=== PATIENT | female | born 1990 | race American Indian/Alaskan Native ===

== ENCOUNTER 2018-09-10 08:30 | Emergency (ER) | payer BC, MEDICAID, OTHER ==
[2018-09-10 08:42] VITALS: RESP 20; O2SAT 100
[2018-09-10] MEDS ORDERED: Midazolam 5 MG/5 ML VIAL IVP STA (09:03)
--- NOTE | 2018-09-10 09:05 | C.PDOC ---
History Of Present Illness PERSIST MID STERNAL CP SINCE 07/2018. INTERMIT MID STERNAL CP, PS "I HAD A CHEST CT AND IT WAS NORMAL", DX BRONCHITIS. PAIN INITIALLY WORSE W COUGH. still w OCC DRY COUGH BUT STILL W TIGHTNESS. DENIES SMOKING, ASTHMA, GI DISEASE. NO LEG SWELL, PAIN EXAM MOD DIST HEENT NEG LUNGS CTA B/L NO W/R/R NO RETRACTION SPEAKING FULL SENTENCES CV RRR SINUS TACH PSYCH ANXIOUS CRYING BUT CONSOLABLE; LABILE EXT NO EDEMA, SWELL, NONTEND REMAINDER NEG Time Seen by Provider: 09/10/18 08:54 Chief Complaint (Nursing): Chest Pain History Per: Patient History/Exam Limitations: no limitations Onset/Duration Of Symptoms: Days Current Symptoms Are (Timing): Still Present Severity: Moderate Past Medical History Reviewed: Historical Data, Nursing Documentation, Vital Signs Vital Signs: Last Vital Signs Temp 99.9 F H 09/10/18 08:42 Pulse 130 H 09/10/18 08:42 Resp 20 09/10/18 08:42 BP 128/81 09/10/18 08:42 Pulse Ox 100 09/10/18 08:42 - Medical History PMH: Bronchitis Surgical History: No Surg Hx Family History: States: No Known Family Hx - Social History Hx Alcohol Use: No Hx Substance Use: No - Immunization History Hx Tetanus Toxoid Vaccination: No Hx Influenza Vaccination: No Hx Pneumococcal Vaccination: No Review Of Systems Except As Marked, All Systems Reviewed And Found Negative. Constitutional: Negative for: Fever, Chills Cardiovascular: Positive for: Chest Pain Respiratory: Negative for: Shortness of Breath Gastrointestinal: Negative for: Nausea, Vomiting Physical Exam - Physical Exam Appears: Other (moderate distress) Skin: Normal Color, Warm, Dry Head: Atraumatic, Normacephalic Eye(s): bilateral: Normal Inspection Cardiovascular: Other (RRR Sinus Tachycardia) Respiratory: Normal Breath Sounds, No Rales, No Rhonchi, No Wheezing, Other (speaking in full sentences, no retractions) Extremity: Normal ROM, No Tenderness, No Swelling, Other (no edema) Neurological/Psych: Other (psych: anxious,crying, but consolable; labile) ED Course And Treatment - Laboratory Results Result Diagrams: 09/10/18 09:51 09/10/18 09:51 ECG: Interpreted By Me ECG Rhythm: Sinus Tachycardia Rate From EC O2 Sat by Pulse Oximetry: 100 (RA) Pulse Ox Interpretation: Normal - Radiology CXR: Interpreted by Me, Viewed By Me CXR Interpretation: Yes: No Acute Disease Progress - Re-Evaluation Re-evaluation Note: 09/10/18 10:58 PT NOW STATES IS ON ALBUTEROL MDI AND STEROID. CURRENTLY TAKING AMOXIL 500 MG SINCE 4 DAYS DUE TO DENTAL INFXN. LABS WNL. RX AUGMENTIN, TESSALON, CONTINUE NSAIDS ADVISED FU PMD Medical Decision Making Medical Decision Making: Plan: --Labs --ECG --CXR --Morphine IV --Versed IV Disposition Counseled Patient/Family Regarding: Studies Performed, Diagnosis, Need For Followup, Rx Given - Disposition Referrals: YOUR,PMD [Other] Disposition: HOME/ ROUTINE Disposition Time: 10:49 Condition: IMPROVED Prescriptions: Amoxicillin/Clavulanate [Augmentin 875 MG-125 MG] 1 tab PO BID #14 tab Benzonatate [Tessalon Perles] 200 mg PO TID PRN #15 sgl PRN Reason: Cough Instructions: Costochondritis (DC) Forms: [facility] (Syrian), Work Excuse - Clinical Impression Clinical Impression: Pleuritic pain, Anxiety reaction, Cough - Scribe Statement The provider has reviewed the documentation as recorded by the Tushar Mercado Provider Attestation: All medical record entries made by the Daytonibsarath were at my direction and personally dictated by me. I have reviewed the chart and agree that the record accurately reflects my personal performance of the history, physical exam, medical decision making, and the department course for this patient. I have also personally directed, reviewed, and agree with the discharge instructions and disposition.
[2018-09-10] MEDS ORDERED: Midazolam 2 MG/2 ML VIAL ONE (09:29)
[2018-09-10 09:54] LABS: BASO # 0.1 K/uL (0.0-0.2); BASO % 0.4 % (0.0-2.0); EOS % 0.2 % (0.0-4.0); HEMOGLOBIN 12.5 g/dL (11.0-16.0); LYMPH # 0.5 K/uL (1.0-4.3); LYMPH % 3.9 % (20.0-40.0); MEAN CELL VOLUME 81.5 fL (81.0-99.0); MEAN CORPUSCULAR HEMOGLOBIN 26.5 pg (27.0-31.0); MEAN CORPUSCULAR HGB CONC 32.5 g/dL (33.0-37.0); MEAN PLATELET VOLUME 8.1 fL (7.2-11.7); MONO # 0.8 K/uL (0.0-0.8); MONO % 6.5 % (0.0-10.0); NEUT # 11.4 K/uL (1.8-7.0); PLATELET COUNT 335 K/uL (130-400); RBC 4.72 Mil/uL (3.80-5.20); RED CELL DISTRIBUTION WIDTH 14.5 % (11.5-14.5); WHITE BLOOD COUNT 12.8 K/uL (4.8-10.8)
--- NOTE | 2018-09-10 10:13 | RAD ---
HISTORY: chest pain COMPARISON: No prior. TECHNIQUE: Chest PA and lateral FINDINGS: LUNGS: Mild subsegmental atelectasis left lung base. Developing infiltrate not excluded in the proper clinical setting. PLEURA: No significant pleural effusion identified. No definite pneumothorax . CARDIOVASCULAR: Heart size appears within normal limits. No atherosclerotic calcification present. OSSEOUS STRUCTURES: No acute osseous abnormality identified. VISUALIZED UPPER ABDOMEN: Unremarkable. OTHER FINDINGS: None. IMPRESSION: Mild subsegmental atelectasis left lung base. Developing infiltrate not excluded in the proper clinical setting. Study marked for PA review.
[2018-09-10 10:23] LABS: ALB/GLOB RATIO 1.5 (1.0-2.1); ALBUMIN 4.8 g/dL (3.5-5.0); ALT/SGPT 13 U/L (9-52); AST/SGOT 37 U/L (14-36); BLOOD UREA NITROGEN 6 mg/dL (7-17); CALCIUM 9.5 mg/dl (8.6-10.4); GFR NON-AFRICAN AMERICAN > 60
[2018-09-10 10:52] LABS: BANDS 1 % (0-2); LYMPHOCYTE 3 % (20-40); MONOCYTE 7 % (0-10); NEUTROPHIL 89 % (50-75); PLATELET ESTIMATE NORMAL (NORMAL); TOTAL CELLS COUNTED 100
[2018-09-10] MEDS ORDERED: Amoxicillin-Clav 875-125 mg Tab PO STA (10:59)
[2018-09-10] MEDS ORDERED: Amoxicillin-Clav 875-125 mg Tab PO ONE (11:05)
[2018-09-10 11:07] VITALS: BP 125/72; PULSE 112; TEMP 99.1
--- NOTE | 2018-09-15 23:52 | CARD ---
APPROVED REPORT Date of service: 09/10/2018 EKG Measurement Heart [id number] <Conclusion> Sinus tachycardia Possible Left atrial enlargement Rightward axis Nonspecific ST and T wave abnormality Abnormal ECG
== END 2018-09-10 11:17 | disposition home or self-care (01) ==
LOC: C.ER 08:30
DX: R07.81 Pleurodynia (principal); F41.1 Generalized anxiety disorder; R05 Cough
CPT/HCPCS: 71046; 80053; 81025; 84484; 85025; 85378; 93005; 96374; 96375; 99285; J2250; J2270

== ENCOUNTER 2018-09-12 11:12 | Emergency (ER) | payer BC ==
[2018-09-12 11:26] VITALS: BP 118/82; PULSE 85; RESP 18; TEMP 98.1; O2SAT 100
--- NOTE | 2018-09-12 11:41 | C.PDOC ---
History Of Present Illness 28 y/o female returns to the ED for re-eval of cough, after she was called by ANNA Gtz to come in for repeat CXR. Patient was seen here on the by me for same, and was discharged home on Augmentin. Patient reports compliance with antibiotic and notes overall improvement in symptoms. Cough is decreasing. Patient is still having residual pleuritic pain but it is improved from prior. Otherwise pt denies fever or other complaints. Time Seen by Provider: 09/12/18 11:27 Chief Complaint (Nursing): Cough, Cold, Congestion History Per: Patient History/Exam Limitations: no limitations Onset/Duration Of Symptoms: Days Current Symptoms Are (Timing): Better Associated Symptoms: Cough Past Medical History Reviewed: Historical Data, Nursing Documentation, Vital Signs Vital Signs: Last Vital Signs Temp 98.1 F 09/12/18 11:21 Pulse 85 09/12/18 11:21 Resp 18 09/12/18 11:21 BP 118/82 09/12/18 11:21 Pulse Ox 100 09/12/18 11:21 - Medical History PMH: Bronchitis Family History: States: Unknown Family Hx - Social History Hx Alcohol Use: No Hx Substance Use: No - Immunization History Hx Tetanus Toxoid Vaccination: No Hx Influenza Vaccination: No Hx Pneumococcal Vaccination: No Review Of Systems Except As Marked, All Systems Reviewed And Found Negative. Constitutional: Negative for: Fever, Chills Respiratory: Positive for: Cough, Pleuritic Pain Gastrointestinal: Negative for: Vomiting, Diarrhea Skin: Negative for: Rash Neurological: Negative for: Weakness, Numbness Physical Exam - Physical Exam Appears: Non-toxic, No Acute Distress, Other (Appears improved from initial exam) Skin: Warm, Dry Head: Atraumatic, Normacephalic Eye(s): bilateral: Normal Inspection Oral Mucosa: Moist Neck: Normal ROM Chest: Symmetrical Cardiovascular: Rhythm Regular, No Murmur Respiratory: No Rales, No Rhonchi, No Wheezing, Other (NARD) Extremity: Bilateral: Atraumatic, Normal Color And Temperature Pulses: Left Radial: Normal, Right Radial: Normal Neurological/Psych: Oriented x3, Normal Speech, Normal Cranial Nerves Gait: Steady ED Course And Treatment O2 Sat by Pulse Oximetry: 100 (RA) Pulse Ox Interpretation: Normal - Other Rad CXR X-Ray: Read By Radiologist Interpretation: Accession No. : [id number]. Patient Name / ID : [id number] / [id number]. Exam Date : 09/12/2018 11:41:39 ( Approved ). Study Comment : Sex / Age : F / 28Y. Creator : itzel moore. Dictator : Radha Martin MD. German Teacher : Spindle Maker : Radha Martin MD. Approver2 : Report Date : 09/12/2018 12:03:13. My Comment : . HISTORY: COUGH ABN REPORT PER PRIOR CXR 09/10. COMPARISON: Chest x-ray performed 09/10/18. TECHNIQUE: Chest PA and lateral. FINDINGS: LUNGS: Mild subsegmental atelectasis, left lung base. No focal consolidation. Please note that chest x-ray has limited sensitivity for the detection of pulmonary masses. PLEURA: No significant pleural effusion identified. No definite pneumothorax . CARDIOVASCULAR: The cardiomediastinal silhouette appears within normal limits of size. No atherosclerotic calcification present. OSSEOUS STRUCTURES: No acute osseous abnormality identified. VISUALIZED UPPER ABDOMEN: Unremarkable. OTHER FINDINGS: None. IMPRESSION: No focal consolidation. Medical Decision Making Medical Decision Making: Patient advised of risks vs benefits of multi-antibiotic therapy. Advised to continue the Augmentin given only 2 days of current treatment. Discussed plan, patient still requests repeat CXR. CXR reviewed, no infiltrates. Imaging and course of discharge discussed w/ patient in detail. Disposition Counseled Patient/Family Regarding: Studies Performed, Diagnosis, Need For Followup - Disposition Referrals: YOUR,PMD [Other] Disposition: HOME/ ROUTINE Disposition Time: 12:21 Condition: GOOD Additional Instructions: CONTINUE CURRENT ANTIBIOTICS PREVIOUSLY PRESCRIBED. Forms: [facility] ([place]), Work Excuse - Clinical Impression Clinical Impression: Cough, Pleuritic pain - Scribe Statement The provider has reviewed the documentation as recorded by the Tushar Sylvester Provider Attestation: All medical record entries made by the Scribe were at my direction and personally dictated by me. I have reviewed the chart and agree that the record accurately reflects my personal performance of the history, physical exam, medical decision making, and the department course for this patient. I have also personally directed, reviewed, and agree with the discharge instructions and disposition.
--- NOTE | 2018-09-12 12:14 | RAD ---
HISTORY: COUGH ABN REPORT PER PRIOR CXR 09/10 COMPARISON: Chest x-ray performed 09/10/18 TECHNIQUE: Chest PA and lateral FINDINGS: LUNGS: Mild subsegmental atelectasis, left lung base. No focal consolidation. Please note that chest x-ray has limited sensitivity for the detection of pulmonary masses. PLEURA: No significant pleural effusion identified. No definite pneumothorax . CARDIOVASCULAR: The cardiomediastinal silhouette appears within normal limits of size. No atherosclerotic calcification present. OSSEOUS STRUCTURES: No acute osseous abnormality identified. VISUALIZED UPPER ABDOMEN: Unremarkable. OTHER FINDINGS: None. IMPRESSION: No focal consolidation.
== END 2018-09-12 12:33 | disposition home or self-care (01) ==
LOC: C.ER 11:12
DX: R05 Cough (principal); R07.81 Pleurodynia